=== PATIENT | female | born 1990 | race Caucasian/White ===

== ENCOUNTER → 2017-09-24 16:03 | Outpatient (CLI) | payer OTHER, SELFPAY ==
[2017-09-24 18:47] LABS: hCG Titer Quant., Serum 14422 mIU/mL (<9 non-preg)
[2017-09-24 21:31] LABS: Chlamydia Trachomatis by PCR Negative (Negative); Neisserai gonorrhoeae by PCR Negative (Negative); Probe Check PASS; Sample Adequacy Control PASS; Specimen Processing Control PASS
== END ==
PROVIDERS: Visit Provider Obstetrics & Gynecology
DX: Z12.4 Encounter for screening for malignant neoplasm of cervix (principal); Z11.3 Encounter for screening for infections with a predominantly sexual mode of transmission; Z32.01 Encounter for pregnancy test, result positive
CPT/HCPCS: 36415; 84702; 87491; 87591

== ENCOUNTER → 2017-10-22 16:36 | Outpatient (CLI) | payer OTHER, SELFPAY ==
[2017-10-22 17:45] LABS: Absolute Lymphocyte Count 1.91 X10^3/ul (0.83-4.51); Absolute Neutrophil Count 6.9 X10^3/uL (2.0-7.7); Basophil# 0.02 X10^3/uL; Basophil% 0.2 % (0-1); Eosinophil# 0.05 X10^3/uL; Eosinophils% 0.5 % (0-5); Hematocrit 40.5 % (37-47); Hemoglobin 12.9 g/dl (12.0-15.0); Lymphocyte # 1.91 X10^3/ul (4.0); Lymphocyte % 20.3 % (19-41); Mean Corp Hgb Conc 31.9 g/gl (32-36); Mean Corpuscular Hgb 26.5 pg (27.0-32.0); Mean Corpuscular Volume 83.2 fL (81-99); Mean Platelet Vol. 9.3 fl (6.2-12.0); Monocyte# 0.51 X10^3/uL; Monocyte% 5.4 % (0-10); Neutrophil # 6.87 X10^3/uL (2.7-7.7); Neutrophil % 73.3 % (47-70); POSITIVE COUNT NO; POSITIVE DIFFERENTIAL NO; POSITIVE MORPHOLOGY NO; Platelet Count 273 K/mm3 (150-450); RBC Distribution Width CV 13.7 % (11.6-14.6); RBC Distribution Width SD 41.1 fl (35.1-43.9); Red Blood Count 4.87 M/mm3 (4.2-5.4); White Blood Count 9.4 K/mm3 (4.4-11.0)
[2017-10-22 17:50] LABS: Color, Urine Straw (Yellow); Glucose, Dipstick Normal (Normal); Ketone-Dipstick Negative (Negative); Leukocyte Esterase-Dipstick Negative /ul (Negative); Nitrite-Dipstick Negative (Negative); Occult Blood-Urine 10 /ul (Negative); Protein-Dipstick Negative (Negative); Specific Gravity, Urine 1.015 (1.002-1.030); Urine Bilirubin Dipstick Negative (Negative); Urine Clarity Clear (Clear); Urine Urobilinogen Normal (Normal)
[2017-10-22 18:08] LABS: Amphetamine Urine VISTA NEGATIVE (<1000 ng/mL); Barbiturate Urine VISTA NEGATIVE (< 200 ng/mL); Benzodiazepine Urine VISTA NEGATIVE (< 200 ng/mL); Cocaine Urine VISTA NEGATIVE (< 300 ng/mL); Ecstacy Urine VISTA NEGATIVE (< 500 ng/mL); Methadone Urine VISTA NEGATIVE (< 300 ng/mL); PCP Urine VISTA NEGATIVE (< 25 ng/mL); THC Urine VISTA NEGATIVE (< 50 ng/mL); Vista UDS pH Range 5
[2017-10-22 18:11] LABS: Thyroid Stim Hormone (TSH) 1.42 uIU/mL (0.358-3.74)
[2017-10-22 18:51] LABS: HIV - WCH Non-Reactive (Nonreactive); Rubella IgG > 500.0 IU/mL
[2017-10-24 03:11] LABS: Prenatal RPR NONREACTIVE (NONREACTIVE)
[2017-10-24 09:10] LABS: HEPATITIS B SURFACE AG Negative (Negative); Hep C Antibodies 0.1 s/co ratio (0.0-0.9)
== END ==
PROVIDERS: Visit Provider Obstetrics & Gynecology
DX: Z34.81 Encounter for supervision of other normal pregnancy, first trimester (principal)
CPT/HCPCS: 36415; 80307; 81002; 84443; 85025; 86703; 86762; 86803; 87340

== ENCOUNTER → 2018-02-23 13:12 | Outpatient (CLI) | payer OTHER, SELFPAY ==
[2018-02-23 15:55] LABS: Hematocrit 36.4 % (37-47); Hemoglobin 11.7 g/dl (12.0-15.0); Mean Corp Hgb Conc 32.1 g/gl (32-36); Mean Corpuscular Hgb 26.9 pg (27.0-32.0); Mean Corpuscular Volume 83.7 fL (81-99); Mean Platelet Vol. 10.2 fl (6.2-12.0); Platelet Count 239 K/mm3 (150-450); RBC Distribution Width CV 13.9 % (11.6-14.6); RBC Distribution Width SD 41.9 fl (35.1-43.9); Red Blood Count 4.35 M/mm3 (4.2-5.4); White Blood Count 8.7 K/mm3 (4.4-11.0)
[2018-02-23 15:58] LABS: Scan Indicated on CBC? Y/N NO
[2018-02-23 16:01] LABS: Glucose Challenge Gest 1H 50g 94 mg/dL (70-140)
== END ==
PROVIDERS: Visit Provider Obstetrics & Gynecology
DX: Z34.83 Encounter for supervision of other normal pregnancy, third trimester (principal)
CPT/HCPCS: 36415; 82950; 85027

== ENCOUNTER → 2018-04-21 13:30 | Outpatient (CLI) | payer OTHER, SELFPAY ==
[2018-04-22 13:13] LABS: Group B Strep DNA By PCR Negative (Negative)
[2018-04-22 13:14] LABS: Internal Control PASS; Probe Check PASS; Specimen Processing Control PASS
== END ==
PROVIDERS: Visit Provider Obstetrics & Gynecology
DX: Z36.85 Encounter for antenatal screening for Streptococcus B (principal)
CPT/HCPCS: 87081; 87653

== ENCOUNTER 2018-05-11 05:35 | Inpatient (IN) | payer OTHER, SELFPAY ==
[2018-05-11] VITALS (21 sets, daily range): BP systolic 101–130; BP diastolic 51–75; PULSE 65–96; RESP 12–18; TEMP 36.2–37.3; O2SAT 96–100; BMI 50.0
[2018-05-11] MEDS: Lactated Ringers 1,000 ML 999 ML IV (07:10)
[2018-05-11 07:12] LABS: Hematocrit 40.1 % (37-47); Hemoglobin 12.7 g/dl (12.0-15.0); Mean Corp Hgb Conc 31.7 g/gl (32-36); Mean Corpuscular Hgb 25.8 pg (27.0-32.0); Mean Corpuscular Volume 81.5 fL (81-99); Mean Platelet Vol. 10.2 fl (6.2-12.0); Platelet Count 217 K/mm3 (150-450); RBC Distribution Width CV 14.7 % (11.6-14.6); RBC Distribution Width SD 43.3 fl (35.1-43.9); Red Blood Count 4.92 M/mm3 (4.2-5.4); White Blood Count 8.1 K/mm3 (4.4-11.0)
[2018-05-11 07:14] LABS: Scan Indicated on CBC? Y/N NO
[2018-05-11 07:20] LABS: Partial Thromboplast Time 25.9 Seconds (24.1-36.2); Prothrombin Time (Protime)PT. 12.7 SECONDS (11.7-14.9)
--- NOTE | 2018-05-11 07:23 | PCM.DCCSEC ---
Discharge Diet: No Restrictions Discharge Activity: May not drive while taking narcotic pain medications., May Shower, May Take a Tub Bath Return to work on:: 06/22/18 May resume sexual activity in: 4-6 weeks Lifting Restrictions: 20 pounds Additional Activity Instructions:: Nothing in the vagina for 4-6 weeks. You may return to work/school in 6 weeks. Change Dressing in (Days):: 4 Remove Dressing in (days):: 4 Cleanse incision/area with: Soap & Water, Keep Dressing Clean & Dry Additional Instructions: If you experience any of the following, contact your healthcare provider. Bleeding that soaks a pad every hour for 2 hours Fever 100.4 or higher Unrelieved incision or abdominal pain Swelling, redness, discharge or bleeding from your incision Problems urinating (including inability to urinate or burning while urinating). Visual changes Severe headache Flu-like symptoms Pain or redness in one of both of your breasts Pain, warmth, tenderness or swelling in your legs, especially the calf area Frequent nausea and vomiting Symptoms of depression or anxiety If you experience any of the following, call 911 or go to the nearest Emergency Room. Chest pain Problems breathing Seizure activity Partial or complete paralysis of a body part, slurred speech, weakness or drooping of the face, or a sudden inability to walk or hold your balance Allergies/Adverse Reactions: Allergies No Known Allergies Allergy (Verified 05/05/18 11:23) Medications to take at Discharge Vit Calc,Iron,Folic [ Vitamins] 1 each PO DAILY 02/22/16 Docusate Sodium [Colace] 100 mg PO BID PRN PRN #30 capsule 05/11/18 Naproxen 500 mg PO Q8H PRN PRN #30 tablet 05/11/18 Oxycodone [Oxyir] 5 - 10 mg PO Q6H PRN PRN 7 Days #20 tablet 05/11/18 The following prescriptions were given: Oxycodone [Oxyir] 5 - 10 mg PO Q6H PRN PRN 7 Days #20 tablet PRN Reason: Mod-Severe Pain (4-1010) Naproxen 500 mg PO Q8H PRN PRN #30 tablet PRN Reason: Mild-Mod Pain (1-510) Docusate Sodium [Colace] 100 mg PO BID PRN PRN #30 capsule PRN Reason: Constipation Follow-Up: Call to make an appointment with your doctor for an incision check in 1-2 weeks. You will also need a 6 week post- follow up appointment. Test results from this visit will be discussed in further detail at your follow-up appointment, if applicable. Please Follow Up With: Filippo Lentz MD - [phone] When: Call to make an appointment for an incision check in 2 weeks. Primary Care Physician: Gayle Beard MD [Primary Care Provider] - Proposed Discharge Date: 05/14/18
[2018-05-11] MEDS: Sodium Citrate/Citric Acid 30 ML UDC PO (07:28)
--- NOTE | 2018-05-11 07:28 | DCINST_ITS ---
Discharge Diet: No Restrictions Discharge Activity: May not drive while taking narcotic pain medications., May Shower, May Take a Tub Bath Return to work on:: 06/22/18 May resume sexual activity in: 4-6 weeks Lifting Restrictions: 20 pounds Additional Activity Instructions:: Nothing in the vagina for 4-6 weeks. You may return to work/school in 6 weeks. Change Dressing in (Days):: 4 Remove Dressing in (days):: 4 Cleanse incision/area with: Soap & Water, Keep Dressing Clean & Dry Additional Instructions: If you experience any of the following, contact your healthcare provider. * Bleeding that soaks a pad every hour for 2 hours * Fever 100.4 or higher * Unrelieved incision or abdominal pain * Swelling, redness, discharge or bleeding from your incision * Problems urinating (including inability to urinate or burning while urinating). * Visual changes * Severe headache * Flu-like symptoms * Pain or redness in one of both of your breasts * Pain, warmth, tenderness or swelling in your legs, especially the calf area * Frequent nausea and vomiting * Symptoms of depression or anxiety If you experience any of the following, call 911 or go to the nearest Emergency Room. * Chest pain * Problems breathing * Seizure activity * Partial or complete paralysis of a body part, slurred speech, weakness or drooping of the face, or a sudden inability to walk or hold your balance Allergies/Adverse Reactions: Allergies No Known Allergies Allergy (Verified 05/05/18 11:23) Medications to take at Discharge Vit Calc,Iron,Folic [ Vitamins] 1 each PO DAILY 02/22/16 Docusate Sodium [Colace] 100 mg PO BID PRN PRN #30 capsule 05/11/18 Naproxen 500 mg PO Q8H PRN PRN #30 tablet 05/11/18 Oxycodone [Oxyir] 5 - 10 mg PO Q6H PRN PRN 7 Days #20 tablet 05/11/18 The following prescriptions were given: Oxycodone [Oxyir] 5 - 10 mg PO Q6H PRN PRN 7 Days #20 tablet PRN Reason: Mod-Severe Pain (4-10) Naproxen 500 mg PO Q8H PRN PRN #30 tablet PRN Reason: Mild-Mod Pain (1-5/10) Docusate Sodium [Colace] 100 mg PO BID PRN PRN #30 capsule PRN Reason: Constipation Follow-Up: Call to make an appointment with your doctor for an incision check in 1-2 weeks. You will also need a 6 week post- follow up appointment. Test results from this visit will be discussed in further detail at your follow- up appointment, if applicable. Please Follow Up With: Filippo Lentz MD - [phone] When: Call to make an appointment for an incision check in 2 weeks. Primary Care Physician: Gayle Beard MD [Primary Care Provider] - Proposed Discharge Date: 05/14/18
[2018-05-11] MEDS: Oxytocin 30 units/NS 500 ml 30 UNITS/500 ML IV.SOLN 167 UNITS IV (07:58)
[2018-05-11] MEDS: Methylergonovine 0.2 MG/ML Ampul IM (08:02)
[2018-05-11] MEDS: Lactated Ringers 1,000 ML 100 ML IV ×2 (10:18→20:25)
[2018-05-11] MEDS: Ketorolac 30 MG/ML Syringe IV ×2 (15:15→21:12)
[2018-05-11] MEDS: Nalbuphine 10 MG/ML Ampul 5 MG IV (15:16)
--- NOTE | 2018-05-11 18:23 | PCM.OP.BLANK ---
Operative Report Date of Procedure: 05/11/18 PROCEDURE: Repeat C section. Preoperative diagnosis: 39 wk EGA Prior C section, planned repeat C section Postop diagnosis: 39 wk EGA Prior C section, planned repeat C section Anesthesia: Spinal, Ridge Tadeo CRNA Surgeon: Evelyn Lemos MD Publishing Systems Analyst: CHETAN Aguero EBL 800 cc Complications: none Drains: Andrews draining clear yellow appearing urine Fluids: replacement LR Findings: At amniotomy, clear fluid was noted. Day viable female in vertex presentation. Apgars 9/9, Baby weight: 7# 1 oz There were normal appearing uterus, fallopian tubes and ovaries bilaterally. There were minimal filmy adhesions between the bladder and lower uterine segment. PATH: None Narrative account: After the risks, benefits and alternatives of the procedure were reviewed with the patient, informed consent was obtained. The patient was taken to the Operating room with an IV running, and placed in a seated position on the operating table for placement of the spinal. Once the spinal had been administered, she was briefly frog-legged for Andrews catheter placement, and then repositioned to dorsal supine position with leftward displacement of the uterus, and prepped and draped in the usual sterile fashion. Once the spinal was deemed adequate, a Pfannenstiel skin incision was created using the knife (through the prior skin incision scar). The incision was carried down to the rectus fascia using the knife. The fascia was nicked in the midline. The fascial incision was extended bilaterally using curved Rapp scissors. The superior aspect of the fascial incision was grasped with Shawn clamps and tented up and the underlying rectus abdominal muscles were dissected free. In a similar manner, the inferior aspect of the facial incision was grasped with Shawn clamps tented up and the underlying rectus abdominal muscles were dissected free. The rectus abdominis muscles were in the midline and the peritoneum was identified and entered by blunt dissection high in the incision. The peritoneum was stretched laterally and a bladder blade was inserted. A bladder flap was created along the lower uterine segment with Metzenbaum scissors . The uterine incision was then created using Metzenbaum scissors. The operators fingertips were used to extend the uterine incision by blunt dissection in a caudad- cephalad orientation . Clear fluid was noted at amniotomy. The vertex was then delivered atraumatically through the incision. The OP and nares were bulb suctioned on the abdomen. The shoulders delivered easily . The cord clamped x two and cut. And the infant was handed off to the nurse awaiting delivery after briefly showing her to her parents. The baby had a spontaneous, vigorous cry. The placenta was then delivered. The uterus was exteriorized and cleared of clots and debris . Ther was a mild degree of uterine atony. Pitocin was given, Methergine was given 0.2 mg IM in L thigh times one, and bimanual uterine massage was used. The uterine incision was repaired with 1 Vicryl in a running locked fashion. A second imbricating layer was then placed, using 1 Monocryl in running nonlocked fashion. There was a small serosal bleed noted at the L uterine angle. This was Bovie cauterized. Excellent hemostasis was then noted. At this point the uterus was returned to the abdominal cavity. The gutters were cleared of clots and debris and the incision at the uterus was inspected. Alvaro was applied along the entire incision for continued hemostasis. The peritoneal edges were reapproximated in the midline with a continuous suture of 1 Vicryl. The rectus abdominis muscles were then reapproximated in the midline. Alvaro was applied to this layer. Excellent hemostasis was noted at the subfascial space The fascia was closed in a running nonlocked fashion with a Stratofix. The Subcutaneous fatty tissue was Bovie cauterized as needed for hemostasis. Alvaro was liberally dusted at this layer to prevent seroma formation. This layer was then reapproximated in a single layer closure of running 3-0 Vicryl to eliminate space. The skin edges were closed in a Subcuticular stitch of 4-0 Monocryl. The incision was cleansed. Cavilon, Steristrips, and Mepilex dressing were applied to the skin . The patient was then transferred to the recovery room bed in stable condition after tolerating the procedure well. Sponge, lap, needle and instrument counts correct times two. Medications given preop and intraoperatively included: Ancef IV given concrete vibrator operator to the operating room. The patient also received Pitocin given IV after cord clamp, Methergine 0.2 mg IM in L thigh, and Toradol 30 mg IV times one. For a complete listing of medications given preop and intraoperatively, please see the anesthesia record.
--- NOTE | 2018-05-11 19:25 | NURSING ---
late entry- 1845 dangled and stood at bedside. tolerated well. ambulated to bathroom, pericare completed and assisted to couch. tolertaed well. at bedside.
[2018-05-12 00:25] VITALS: BP 100/48; PULSE 88; RESP 16; TEMP 36.9; O2SAT 98
[2018-05-12] MEDS: Ketorolac 30 MG/ML Syringe IV ×4 (03:18→20:51)
[2018-05-12] MEDS: Senna/Docusate Sodium 1 Tablet PO ×2 (03:33→22:06)
[2018-05-12] MEDS: Ondansetron 4 MG/2 ML Vial IV (03:33)
[2018-05-12 03:48] VITALS: BP 126/68; PULSE 93; RESP 17; TEMP 37.4; O2SAT 98
[2018-05-12 05:50] VITALS: PULSE 88; RESP 17; O2SAT 97
[2018-05-12 06:05] LABS: Hematocrit 29.1 % (37-47); Hemoglobin 9.2 g/dl (12.0-15.0); Mean Corp Hgb Conc 31.6 g/gl (32-36); Mean Corpuscular Hgb 25.8 pg (27.0-32.0); Mean Corpuscular Volume 81.7 fL (81-99); Mean Platelet Vol. 9.5 fl (6.2-12.0); Platelet Count 143 K/mm3 (150-450); RBC Distribution Width CV 14.6 % (11.6-14.6); RBC Distribution Width SD 42.3 fl (35.1-43.9); Red Blood Count 3.56 M/mm3 (4.2-5.4); White Blood Count 8.2 K/mm3 (4.4-11.0)
[2018-05-12 06:07] LABS: Scan Indicated on CBC? Y/N NO
--- NOTE | 2018-05-12 06:59 | NURSING ---
Pt. called this RN to room for IV alarm going off. Upon entering room, pt. was experiencing moderate to severe anxiety about infant crying, impaired ability to move, and lack of sleep. Pt. kept calling out for infant to stop crying and having c/o pain in her shoulder. Explained that it is referred gas pain from and that getting up and moving will help. women's apparel salesperson called to room to assist pt. up to couch and to help calm pt. down from anxiety. Pt. resting comfortably on couch, bolod discontinued, and nursing .
[2018-05-12 08:00] VITALS: BP 112/51; PULSE 78; RESP 16; TEMP 36.6; O2SAT 99
--- NOTE | 2018-05-12 08:23 | PCM.PN.OB ---
Subjective: POD#1 Repeat C/S Doing well. Tearful. states poor sleep. Declines med to help with sleeping. Nursing. Has not started her Wellbutrin yet. - Physical Exam General: Alert, Oriented x3, Cooperative, No apparent distress HEENT: Atraumatic Neck: Supple Abdomen: Soft - Fundus firm NT at umbilicus Skin: Incision - CDI. Mepilex in place. Neurological: Cranial nerves II-XII grossly intact Psych/Mental Status: Normal Affect - tearful Vital Signs Temp Pulse Resp BP Pulse Ox 99.3 F H 88 17 126/68 H 97 05/12/18 03:48 05/12/18 05:50 05/12/18 05:50 05/12/18 03:48 05/12/18 05:50 Oxygen Delivery Method Room Air Weight: 136.35 kg Body Mass Index (BMI) 50.0 Intake and Output for Last 24 Hours 05/10/18 05/11/18 05/12/18 23:59 23:59 23:59 Intake Total 1338 / 1338 1584.3 / 1584.3 Output Total 700 / 700 1000 / 1000 Balance 638 / 638 584.3 / 584.3 Laboratory Tests Past 24 Hrs 05/11/18 05/12/18 07:00 05:50 WBC 8.2 RBC 3.56 L Hgb 9.2 L Hct 29.1 L MCV 81.7 MCH 25.8 L MCHC 31.6 L RDW 14.6 RDW Differential 42.3 Plt Count 143 L MPV 9.5 Blood Type A POSITIVE Antibody Screen NEGATIVE Medical Necessity - Tobacco Use Smoking Status: Former smoker Assessment/Plan POD#1 Repeat C/S Stable . Inc diet and activity as tolerated. IV to S/L today for continued Toradol. Andrews removed and voiding trial in progress. ANXIETY. starting Wellbutrin today. social services technician consult. Encouraged Ambien or benadryl to help with sleep. Continue care
--- NOTE | 2018-05-12 08:27 | PN.OBGYN_ITS ---
Subjective: POD#1 Repeat C/S Doing well. Tearful. states poor sleep. Declines med to help with sleeping. Nursing. Has not started her Wellbutrin yet. - Physical Exam General: Alert, Oriented x3, Cooperative, No apparent distress HEENT: Atraumatic Neck: Supple Abdomen: Soft - Fundus firm NT at umbilicus Skin: Incision - CDI. Mepilex in place. Neurological: Cranial nerves II-XII grossly intact Psych/Mental Status: Normal Affect - tearful Vital Signs Temp Pulse Resp BP Pulse Ox 99.3 F H 88 17 126/68 H 97 05/12/18 03:48 05/12/18 05:50 05/12/18 05:50 05/12/18 03:48 05/12/18 05:50 Oxygen Delivery Method Room Air Weight: 136.35 kg Body Mass Index (BMI) 50.0 Intake and Output for Last 24 Hours 05/10/18 05/11/18 05/12/18 23:59 23:59 23:59 Intake Total 1338 / 1338 1584.3 / 1584.3 Output Total 700 / 700 1000 / 1000 Balance 638 / 638 584.3 / 584.3 Laboratory Tests Past 24 Hrs 05/11/18 05/12/18 07:00 05:50 WBC 8.2 RBC 3.56 L Hgb 9.2 L Hct 29.1 L MCV 81.7 MCH 25.8 L MCHC 31.6 L RDW 14.6 RDW Differential 42.3 Plt Count 143 L MPV 9.5 Blood Type A POSITIVE Antibody Screen NEGATIVE Medical Necessity - Tobacco Use Smoking Status: Former smoker Assessment/Plan POD#1 Repeat C/S Stable . Inc diet and activity as tolerated. IV to S/L today for continued Toradol. Andrews removed and voiding trial in progress. ANXIETY. starting Wellbutrin today. retail services professional consult. Encouraged Ambien or benadryl to help with sleep. Continue care
[2018-05-12] MEDS: 0.9% Saline Lock 10 ML Syringe IV ×4 (09:02→20:51)
[2018-05-12] MEDS: buPROPion (SR) 150 MG Tablet.SA PO (10:19)
[2018-05-12] MEDS: Prenatal Vits Tablet 1 TABLET PO (10:19)
[2018-05-12 13:57] VITALS: BP 122/68; PULSE 97; RESP 16; TEMP 37.4
--- NOTE | 2018-05-12 15:36 | CASEMGMT ---
Social Work Labor and Delivery Unit Consult received today for maternal anxiety. Chart reviewed. This fiction and nonfiction prose writer familiar with patient/mother of baby (MOB) from previous delivery at [facility], consult at that time also for history of anxiety. Spoke with primary RN today about how MOB is doing today. Plan: Per collaboration with RN, and in light of MOB being post op day number 1, will plan to see MOB tomorrow 05-13-2018 for assessment and consult. -SHAVONNE Kang, STRATEGIC DEBRIEFING OFFICER
[2018-05-12] MEDS: oxyCODONE 5 MG Tablet PO ×2 (17:48→22:06)
[2018-05-12 20:10] VITALS: BP 122/76; PULSE 93; RESP 16; TEMP 37.7; O2SAT 95
[2018-05-13] MEDS: oxyCODONE 5 MG Tablet PO ×5 (02:12→22:31)
[2018-05-13 02:20] VITALS: BP 134/58; PULSE 94; RESP 16; TEMP 36.9; O2SAT 96
[2018-05-13] MEDS: 0.9% Saline Lock 10 ML Syringe IV ×3 (03:03→09:58)
[2018-05-13] MEDS: Ketorolac 30 MG/ML Syringe IV ×2 (03:03→09:49)
--- NOTE | 2018-05-13 08:08 | PN.OBGYN_ITS ---
Subjective: POD#2 Repeat C/S. In much better spirits today. Nursing OK. Rested last night. No longer as tired. - Physical Exam General: Alert, Oriented x3, Cooperative, No apparent distress HEENT: Atraumatic Neck: Supple Abdomen: Soft - Fundus Firm NT at 2 cm inferior to umbilicus Skin: Incision - Mepliex CDI Intact Psych/Mental Status: Normal Affect Vital Signs Temp Pulse Resp BP Pulse Ox 98.4 F 94 16 134/58 H 96 05/13/18 02:20 05/13/18 02:20 05/13/18 02:20 05/13/18 02:20 05/13/18 02:20 Oxygen Delivery Method Room Air Weight: 136.35 kg Body Mass Index (BMI) 50.0 Intake and Output for Last 24 Hours 05/11/05/12/18 05/13/18 23:59 23:59 23:59 Intake Total 1338 / 1338 1584.3 / 1584.3 Output Total 700 / 700 1700 / 1700 Balance 638 / 638 -115.7 / -115.7 Medical Necessity - Tobacco Use Smoking Status: Former smoker Assessment/Plan POD#2 Repeat C/S Stable . Would like to stay. Concerned about pain control and reviewed meds available. ANXIETY. Started Wellbutrin disability services coordinator consult. Continue care
[2018-05-13 09:39] VITALS: BP 119/78; PULSE 86; RESP 16; TEMP 37.2
[2018-05-13] MEDS: buPROPion (SR) 150 MG Tablet.SA PO (09:48)
[2018-05-13] MEDS: Prenatal Vits Tablet 1 TABLET PO (12:07)
[2018-05-13 14:00] VITALS: BP 141/69; PULSE 103; RESP 18; TEMP 36.8
[2018-05-13] MEDS: Naproxen 250 MG Tablet PO ×2 (15:31→23:29)
[2018-05-13 20:00] VITALS: BP 131/75; PULSE 96; RESP 20; TEMP 37.2; O2SAT 97
[2018-05-13] MEDS: Senna/Docusate Sodium 1 Tablet PO (22:31)
[2018-05-14 03:00] VITALS: BP 136/61; PULSE 74; RESP 20; TEMP 36.7; O2SAT 99
[2018-05-14] MEDS: Acetaminophen 500 MG Tablet 1000 MG PO ×2 (03:03→13:33)
[2018-05-14] MEDS: oxyCODONE 5 MG Tablet PO (03:03)
--- NOTE | 2018-05-14 08:06 | PN.OBGYN_ITS ---
Subjective: POD#3 Repeat C/S Doing well. Ready to go home today. On med for anxiety. well services operator consult ordered, in place. - Physical Exam General: Alert, Oriented x3, Cooperative, No apparent distress HEENT: Atraumatic Neck: Supple Abdomen: Soft - Fundus firm minimally tender , inferior to umbilicus. Skin: Incision - CDI. Mepilex dressing in place (remove in 4d after surgery) Neurological: Cranial nerves II-XII grossly intact Psych/Mental Status: Normal Affect Vital Signs Temp Pulse Resp BP Pulse Ox 98.0 F 74 20 H 136/61 H 99 10/06/21 03:00 05/14/18 03:00 05/14/18 03:00 05/14/18 03:00 05/14/18 03:00 Oxygen Delivery Method Room Air Weight: 136.35 kg Body Mass Index (BMI) 50.0 Intake and Output for Last 24 Hours 10//18 1018 05/14/18 23:59 23:59 23:59 Intake Total 1584.3 / 1584.3 Output Total 1700 / 1700 Balance -115.7 / -115.7 Medical Necessity - Tobacco Use Smoking Status: Former smoker Assessment/Plan POD#2 Repeat C/S Stable . Dischg home today. RTO in 1-2 wk for postop incision check. 6 wk for pp check.
--- NOTE | 2018-05-14 08:06 | PCM.DC.SUM ---
Hospital Course and Treatment Operations: - - Repeat C/S Summary of Care Provided: The patient is a 28 year old Female presents for repeat C/S. Declines BTO. Admitted for repeat C/S on 05/11/18. Procedure uncomplicated with findings as listed: At amniotomy, clear fluid was noted. Day viable female in vertex presentation. Apgars 9/9, Baby weight: 7# 1 oz There were normal appearing uterus, fallopian tubes and ovaries bilaterally. There were minimal filmy adhesions between the bladder and lower uterine segment. Postoperative course uneventful. Initially anxious and poor sleep. Started on Wellbutrin 150 mg po daily. senior manager creative services consult obtained re her extreme anxiety. Improvement noted with sleep, s/p procedure, and initiation of medication. Home on POD#3 per her request. RTO in 2 wk and 6 wk for f/u postop and exams. [] - Physical Exam Vital Signs Temp Pulse Resp BP Pulse Ox 98.0 F 74 20 H 136/61 H 99 05/14/18 03:00 05/14/18 03:00 05/14/18 03:00 05/14/18 03:00 05/14/18 03:00 Oxygen Delivery Method Room Air Weight: 136.35 kg Body Mass Index (BMI) 50.0 Intake and Output for Last 24 Hours 05/12/18 05/13/18 05/14/18 23:59 23:59 23:59 Intake Total 1584.3 / 1584.3 Output Total 1700 / 1700 Balance -115.7 / -115.7 Discharge Diet: No Restrictions Discharge Activity: May not drive while taking narcotic pain medications., May Shower, May Take a Tub Bath Return to work on:: 06/22/18 May resume sexual activity in: 4-6 weeks Additional Activity Instructions:: Nothing in the vagina for 4-6 weeks. You may return to work/school in 6 weeks. Change Dressing in (Days):: 4 Remove Dressing in (days):: 4 Cleanse incision/area with: Soap & Water, Keep Dressing Clean & Dry Home Medications: Medications to take at Discharge Vit Calc,Iron,Folic [ Vitamins] 1 each PO DAILY 02/22/16 Docusate Sodium [Colace] 100 mg PO BID PRN PRN #30 capsule 05/11/18 Naproxen 500 mg PO Q8H PRN PRN #30 tablet 05/11/18 Oxycodone [Oxyir] 5 - 10 mg PO Q6H PRN PRN 7 Days #20 tablet 05/11/18 buPROPion SR [Wellbutrin SR (150mg tablets)] 150 mg PO DAILY #30 tablet.sa 05/11/18 Following Prescrptions Were Given to Patient: Oxycodone [Oxyir] 5 - 10 mg PO Q6H PRN PRN 7 Days #20 tablet PRN Reason: Mod-Severe Pain (-05/13) Naproxen 500 mg PO Q8H PRN PRN #30 tablet PRN Reason: Mild-Mod Pain (1-12/11) buPROPion SR [Wellbutrin SR (150mg tablets)] 150 mg PO DAILY #30 tablet.sa Docusate Sodium [Colace] 100 mg PO BID PRN PRN #30 capsule PRN Reason: Constipation Primary Care Physician: Gayle Beard MD [Primary Care Provider] - Please Follow Up With: Filippo Lentz MD - [phone] When: Call to make an appointment for an incision check in 2 weeks. Medical Necessity - Tobacco Use Smoking Status: Former smoker Meaningful Use Info Meaningful Use Diagnoses (Choose all that apply): None applicable
[2018-05-14 08:08] VITALS: BP 121/74; PULSE 95; RESP 16; TEMP 36.4
--- NOTE | 2018-05-14 08:09 | DS.PCM_ITS ---
Hospital Course and Treatment Operations: - - Repeat C/S Summary of Care Provided: The patient is a 28 year old Female presents for repeat C/S. Declines BTO. Admitted for repeat C/S on 05/11/18. Procedure uncomplicated with findings as listed: At amniotomy, clear fluid was noted. Day viable female in vertex presentation. Apgars 9/9, Baby weight: 7# 1 oz There were normal appearing uterus, fallopian tubes and ovaries bilaterally. There were minimal filmy adhesions between the bladder and lower uterine segment. Postoperative course uneventful. Initially anxious and poor sleep. Started on Wellbutrin 150 mg po daily. enrollment services dean consult obtained re her extreme anxiety. Improvement noted with sleep, s/p procedure, and initiation of medication. Home on POD#3 per her request. RTO in 2 wk and 6 wk for f/u postop and exams. [] - Physical Exam Vital Signs Temp Pulse Resp BP Pulse Ox 98.0 F 74 20 H 136/61 H 99 05/14/18 03:00 05/14/18 03:00 05/14/18 03:00 05/14/18 03:00 05/14/18 03:00 Oxygen Delivery Method Room Air Weight: 136.35 kg Body Mass Index (BMI) 50.0 Intake and Output for Last 24 Hours 05/12/18 05/13/18 05/14/18 23:59 23:59 23:59 Intake Total 1584.3 / 1584.3 Output Total 1700 / 1700 Balance -115.7 / -115.7 Discharge Diet: No Restrictions Discharge Activity: May not drive while taking narcotic pain medications., May Shower, May Take a Tub Bath Return to work on:: 06/22/18 May resume sexual activity in: 4-6 weeks Additional Activity Instructions:: Nothing in the vagina for 4-6 weeks. You may return to work/school in 6 weeks. Change Dressing in (Days):: 4 Remove Dressing in (days):: 4 Cleanse incision/area with: Soap & Water, Keep Dressing Clean & Dry Home Medications: Medications to take at Discharge Vit Calc,Iron,Folic [ Vitamins] 1 each PO DAILY 02/22/16 Docusate Sodium [Colace] 100 mg PO BID PRN PRN #30 capsule 05/11/18 Naproxen 500 mg PO Q8H PRN PRN #30 tablet 05/11/18 Oxycodone [Oxyir] 5 - 10 mg PO Q6H PRN PRN 7 Days #20 tablet 05/11/18 buPROPion SR [Wellbutrin SR (150mg tablets)] 150 mg PO DAILY #30 tablet.sa 05/11/18 Following Prescrptions Were Given to Patient: Oxycodone [Oxyir] 5 - 10 mg PO Q6H PRN PRN 7 Days #20 tablet PRN Reason: Mod-Severe Pain (-05/13) Naproxen 500 mg PO Q8H PRN PRN #30 tablet PRN Reason: Mild-Mod Pain (1-12/11) buPROPion SR [Wellbutrin SR (150mg tablets)] 150 mg PO DAILY #30 tablet.sa Docusate Sodium [Colace] 100 mg PO BID PRN PRN #30 capsule PRN Reason: Constipation Primary Care Physician: Gayle Beard MD [Primary Care Provider] - Please Follow Up With: Filippo Lentz MD - [phone] When: Call to make an appointment for an incision check in 2 weeks. Medical Necessity - Tobacco Use Smoking Status: Former smoker Meaningful Use Info Meaningful Use Diagnoses (Choose all that apply): None applicable
[2018-05-14] MEDS: Naproxen 250 MG Tablet PO (08:40)
[2018-05-14] MEDS: Senna/Docusate Sodium 1 Tablet PO (08:43)
--- NOTE | 2018-05-14 10:30 | CASEMGMT ---
Social Work Assessment Labor and Delivery Unit Date of Referral: 05.12.2018 Time of Referral: 814 Referred By: Dr. Lemos Date of Intervention: 05.14.18 Time of Intervention: 1030 Reason for Referral: maternal anxiety History obtained from: Medical record and mother of baby (MOB) Rox Nuñez Household composition: MOB, father of baby (FOB), and their oldest child. will go to this home at discharge. Patient's parent/guardian status: MOB and FOB Timur Nuñez are for 3 years now. MOB denies any safety concerns or history of abuse in this marriage. MOB reports home situation is safe and adequate. Minor children include: [place] Randa (born 10..18) and Yohana (born 7..16). Medical History: MOB is G3, P1 to 2 after delivering Randa. MOB with one first trimester loss between Yohana and Randa. MOB with care this starting at 10 weeks. Baby born weighing 7 pounds 1 ounce, Apgars 9 and 9 at 1 and 5 minutes of life. Educational Status: No issues with reading, writing, or learning comprehension. Financial Status: MOB is currently staying at home. FOB works as a respiratory therapist. Infant Supplies: MOB reports to have needed supplies for baby including safe sleep space and car seat. MOB plans to breast feed . Childcare/Caregiver(s): MOB Transportation: Both MOB and FOB drive, no issues reported Programs/Agencies Involved: No agency involvement, no legal history and no reports of any children services involvement. MOB denies need for referral to any agencies locally such as [facility]. Behavioral Health Issues: Mental Health History: MOB with history of depression and anxiety, with anxiety being more prominent for MOB. MOB reports did have some mood issues after delivery of Yohana which lasted about 2-3 weeks. MOB reports was having dreams which caused anxiety. No thoughts, plans, intent to harm self or others at that time and denies such currently. MOB reports worried a lot about SIDS at that time. MOB reports was on Wellbutrin but went off during . MOB is restarting this and reports to feel this medication does work okay for MOB. Substance Use History: MOB denies any history of substance abuse or dependency. No tobacco use either. Drug Screens: Maternal drug screen on 3.21.18 negative for drugs of abuse. Family/Social Stressors: MOB did have a loss between of daughters. MOB reports to feel that coped well after the loss, that at the time parents looked at the situation as something that was not meant to be at the time. MOB reports does have some anxiety but is starting on medication again. MOB discussed worries about too many family members coming to visit and wanting to respectfully keep boundaries up that are good for MOB and FOB?s family unit. Support Systems: MOB repots to have family that are helpful and around if MOB needs. MOB reports however that FOB is primary support person and is helpful to MOB and the children. FOB will have a couple of weeks off work to assist MOB with transition home from hospital with baby and care of two children. Depression/Shaken Baby/Safe Sleeping: MOB is aware of safe sleeping, shaken baby prevention, and mood and anxiety issues. Educated MOB to signs/symptoms and risk factors. Supportive encouragement and reflection provided to MOB, discussed assertive communication and boundary setting. ASSESSMENT: MOB pleasant, talkative, good eye contact, mood slightly anxious, affect full. MOB smiled and attentive to the baby. MOB reports it was helpful to be able to have someone to talk to about life situations. MOB also reports to feel that as each day has gone by things have improved regarding how MOB has been feeling emotionally. Talked with MOB about possible counseling as another outlet for MOB, for ongoing support in managing life stressors and emotions. MOB reports will consider this and accepting of resources offered today. MOB reports to feel to have adequate support and resources for baby. MOB is restarting medication and has accepted resources for support. Reinforces need to seek help and support should symptoms worsen. PLAN: MOB and baby to home. MOB has been given depression packet, local [id number] for support and online resources to try if needed. No other services requested or indicated. -ENMA Kang, CREATIVE INTERN
[2018-05-14] MEDS: buPROPion (SR) 150 MG Tablet.SA PO (10:55)
[2018-05-14] MEDS: Prenatal Vits Tablet 1 TABLET PO (12:48)
[2018-05-14 13:05] VITALS: BP 143/83; PULSE 103; RESP 16; TEMP 36.8
[2018-05-14 15:15] VITALS: BP 136/69; PULSE 88; O2SAT 100
--- NOTE | 2018-05-18 12:27 | NURSING ---
Follow up phone call complete, patient denies concerns or questions, but did request and schedule an appointment with an IBCLC with questions about her baby's latch. Was very satisfied with her care
== END 2018-05-14 15:25 | disposition home or self-care (01) | DRG 788 ==
PROVIDERS: Obstetrics & Gynecology; Admitting Provider Obstetrics & Gynecology; Family Provider Family Medicine; PCP Family Medicine; Referring Provider Obstetrics & Gynecology; Visit Provider Obstetrics & Gynecology
PROC: 10D00Z1 Extraction of Products of Conception, Low, Open Approach (ICD-10-PCS; CPT 59514; principal; 2018-05-11 07:15)
DX: O34.211 Maternal care for low transverse scar from previous cesarean delivery (principal); O99.62 Diseases of the digestive system complicating childbirth; K21.9 Gastro-esophageal reflux disease without esophagitis; O99.344 Other mental disorders complicating childbirth; F32.9 Major depressive disorder, single episode, unspecified; F41.9 Anxiety disorder, unspecified; Z87.891 Personal history of nicotine dependence; Z3A.39 39 weeks gestation of pregnancy; Z37.0 Single live birth
CPT/HCPCS: 85027; 85610; 85730; 86850; 86900; 99218; J7120; A4216; G0378; J2405

== ENCOUNTER 2018-05-20 14:07 | Outpatient (CLI) | payer OTHER, SELFPAY | END 2018-05-20 15:15 | disposition home or self-care (01) | LOC: WPOUT 14:12 → WP 14:13 | PROVIDERS: Family Provider Family Medicine; PCP Family Medicine; Referring Provider Obstetrics & Gynecology; Visit Provider Obstetrics & Gynecology | DX: Z39.1 Encounter for care and examination of lactating mother (principal) ==

== ENCOUNTER → 2018-12-29 11:40 | Outpatient (CLI) | payer OTHER, SELFPAY ==
[2018-05-11 07:27] VITALS: BMI 50.0
[2018-12-29 14:09] LABS: Absolute Lymphocyte Count 1.65 X10^3/ul (0.83-4.51); Absolute Neutrophil Count 3.8 X10^3/uL (2.0-7.7); Basophil# 0.02 X10^3/uL; Basophil% 0.3 % (0-1); Eosinophils% 1.7 % (0-5); Hematocrit 41.9 % (37-47); Hemoglobin 13.2 g/dl (12.0-15.0); Lymphocyte # 1.65 X10^3/ul (4.0); Lymphocyte % 27.5 % (19-41); Mean Corp Hgb Conc 31.5 g/gl (32-36); Mean Corpuscular Hgb 24.3 pg (27.0-32.0); Mean Corpuscular Volume 77.2 fL (81-99); Mean Platelet Vol. 9.6 fl (6.2-12.0); Monocyte# 0.39 X10^3/uL; Monocyte% 6.5 % (0-10); Neutrophil # 3.82 X10^3/uL (2.7-7.7); Neutrophil % 63.8 % (47-70); Platelet Count 264 K/mm3 (150-450); RBC Distribution Width SD 44.9 fl (35.1-43.9); Red Blood Count 5.43 M/mm3 (4.2-5.4)
[2018-12-29 14:14] LABS: POSITIVE COUNT NO; POSITIVE DIFFERENTIAL NO; POSITIVE MORPHOLOGY NO
[2018-12-29 14:32] LABS: ALB/GLOB Ratio 0.9 RATIO (0.9-2.4); AST(SGOT) 16 U/L (15-37); Alanine Aminotransfer ALT/SGPT 41 U/L (13-56); Albumin, Serum 3.6 g/dL (3.2-5.0); Alkaline Phosphatase 65 U/L (45-117); Anion Gap 9 (5-15); BUN 9 mg/dL (7-18); BUN/Creat Ratio 10.3 RATIO (10-20); Calcium,Total 8.9 mg/dL (8.5-10.1); Chloride 110 mmol/L (98-107); Cholesterol 149 mg/dL (200); Creatinine, Serum 0.88 mg/dL (0.55-1.02); EST Glomerular Filtration Rate 80 mL/min (>60); Est Glom Filt Rate - Afr Amer 97 mL/min (>60); Globulin 4.2 g/dL (2.2-4.2); Glucose 74 mg/dL (74-106); High Density Lipoprotein 48 mg/dL; Potassium 3.7 mmol/L (3.5-5.1); Protein, Total 7.8 g/dL (6.4-8.2); Sodium Level 143 mmol/L (136-145); Thyroid Stim Hormone (TSH) 1.48 uIU/mL (0.358-3.74); Triglycerides 76 mg/dL; Very Low Density Lipoprotein 15 mg/dL (5-40)
== END ==
PROVIDERS: Family Provider Family Medicine; PCP Family Medicine; Referring Provider Family Medicine; Visit Provider Family Medicine
DX: R10.32 Left lower quadrant pain (principal); R19.7 Diarrhea, unspecified; R11.0 Nausea
CPT/HCPCS: 36415; 80053; 80061; 83630; 84443; 85025; 87177; 87209; 87493; 87506

== ENCOUNTER → 2019-01-12 07:39 | Outpatient (CLI) | payer OTHER, SELFPAY ==
--- NOTE | 2019-01-12 07:41 | US_ITS ---
STUDY: ABDOMINAL ULTRASOUND - RIGHT UPPER QUADRANT REASON FOR VISIT: Female, 28 years old. Right upper quadrant pain. TECHNIQUE: Ultrasound evaluation of the right upper quadrant was performed with real-time and static cr-scale imaging. TECHNICAL QUALITY: Adequate. COMPARISON: None. FINDINGS: Liver: The liver measures 16.0 cm. There is increased echogenicity consistent with fatty infiltration. The bile ducts are within normal limits. There is hepatic color flow. The direction of portal flow is hepatopetal. There is no demonstrated mass lesion. Gallbladder: Normal distended gallbladder. The gallbladder wall measures 3.1 mm. There is a negative sonographic Grissom's sign. There is no pericholecystic fluid. There are no gallstones. Common Bile Duct (C.B.D.): The common bile duct measures 4.0 mm. Pancreas: Normal size of the head, body and tail of the pancreas. There is normal echogenicity of the pancreas. There is no demonstrated pancreatic mass or cyst. Right Kidney: Normal size of the right kidney. The right kidney measures 11.0 cm x 5.7 cm x 3.9 cm. Normal renal cortex. The right cortex measures cm. There is no demonstrated renal mass or cyst. There is no right hydronephrosis. US/Abdomen Limited IMPRESSION: Normal right upper quadrant ultrasound examination. Electronically Signed: Bunny Manuel, at 13:24 EDT , Service support ,
== END ==
PROVIDERS: Family Provider Family Medicine; PCP Family Medicine; Referring Provider Family Medicine; Visit Provider Family Medicine
DX: R10.11 Right upper quadrant pain (principal)
CPT/HCPCS: 76705

== ENCOUNTER → 2019-01-18 11:04 | Outpatient (CLI) | payer OTHER, SELFPAY ==
--- NOTE | 2019-01-18 11:08 | NM_ITS ---
CLINICAL: 28-year-old female with reported history of right upper quadrant abdominal pain. RADIONUCLIDE HEPATOBILIARY SCINTIGRAPHY COMPARISON: Abdominal ultrasound report 01/12/2019 FINDINGS: Following the intravenous administration of 5.4 mCi of 99m Tc Mebrofenin, hepatobiliary images reveal:. 1. Relatively prompt and homogeneous radiopharmaceutical concentration is noted by a normal sized liver. No parenchymal defects are identified. 2. Gallbladder activity is identified at 75 minutes post radiopharmaceutical administration. 3. Small intestinal tract is observed at 15 minutes following tracer injection. 4. Washout of the radiopharmaceutical by the hepatic parenchyma appears qualitatively normal. Cholecystokinin (0.02 ug/kg) was administered intravenously over a 30-minute period. The post CCK gallbladder ejection fraction calculated at 20 minutes following Cholecystokinin administration was noted to be 36.0 % (normal greater than 35%). During 30 minutes of post CCK imaging, there is scintigraphic evidence of refilling of the gallbladder and visualized duodenal-gastric reflux. NM/Hepatobilliary Img w/Pharm Int IMPRESSION: 1. A gallbladder ejection fraction calculated to be greater than 35% following the administration of Cholecystokinin makes the probability of functional hepatobiliary disease (gallbladder dyskinesia) and/or organic hepatobiliary disease (chronic acalculous cholecystitis and/or cystic duct syndrome) to be low. (Carlos Alberto Bianchi et al, Journal of Nuclear Medicine 32:1695, 1990). 2. The presentation of a normal gallbladder ejection fraction with refilling of the gallbladder following CCK administration, may represent the presence of Sphincter of Oddi dysfunction. Correlation with Sphincter of Oddi manometry may be of benefit. (Bobbi and Bobbi, J Nucl Med 38:1824, 1997). 3. Post cholecystokinin duodenal-gastric reflux is noted as described above. Electronically Signed: David Claudio DO at 11:08 EDT Tel , Service support ,
== END ==
PROVIDERS: Family Provider Family Medicine; PCP Family Medicine; Referring Provider Family Medicine; Visit Provider Family Medicine
DX: R10.11 Right upper quadrant pain (principal); R11.0 Nausea
CPT/HCPCS: 78227; A9537; J2805

== ENCOUNTER 2019-03-19 05:33 | Day surgery (SDC) | payer OTHER, SELFPAY ==
--- NOTE | 2019-02-16 01:43 | HP_ITS ---
Intake Vital Signs 02/16/19 Body Mass Index (BMI) 50.0 02/16/19 Height 5 ft 5 in 02/16/19 Weight: 246 lb 02/16/19 Body Mass Index (BMI) 40.9 02/16/19 Blood Pressure 135/84 H 02/16/19 Blood Pressure Location Rt brachial 02/16/19 Blood Pressure Position Sitting 02/16/19 Respiratory Rate 18 02/16/19 Pulse Rate 78 02/16/19 Pulse Source Monitor 02/16/19 Temperature 98.7 F 02/16/19 Temperature Source Oral 02/16/19 Pulse Ox 97 02/16/19 Oxygen Delivery Method room air Intake Visit Reasons: RUQ pain Parts Product Analyst Required: No Is patient in pain?: No Allergies No Known Allergies Allergy (Verified 02/16/19 13:11) Medications L.acidophilus,gasseri,rhamnosus-B.bifidum,long 3 billion cell capsule cap PO DAILY cap 02/16/19 [History Confirmed 02/16/19] multivitamin capsule 1 cap PO DAILY 02/16/19 [History] [facility] Medical History (Updated 02/16/19 @ 13:37 by Josh Vega MD) Diarrhea (Acute) Epigastric abdominal pain (Acute) Abdominal pain (Acute) Acid reflux (Acute) Anxiety (Acute) History of back problems (Acute) Nausea (Acute) Obesity (Acute) Surgical History (Updated 02/16/19 @ 13:09 by Sandra Warner) History of (Acute) History of tonsillectomy and adenoidectomy (Acute) Social History (Updated 02/16/19 @ 13:43 by Josh Vega MD) adopted: Yes Smoking Status: Former smoker alcohol intake: never substance use type: does not use HPI HPI HPI: CAMDEN ANTONIO, is a 29 F who presents to the office today for HPI HPI Surgical H&P: Yes HPI: CAMDEN ANTONIO, is a 29 F who presents to the office today for surgical consultation regarding abdominal pain and diarrhea. The patient's father is Dr. Prabhu Pettit. On May 11, 2018 the patient via delivered her child. 8 weeks post delivery she was placed on Depo-Provera shots as a means of control. She had had this medication remotely from age 16 through 21. On this occasion however she developed epigastric pain. Nausea. Intermittent episodes of severe diarrhea and loss of appetite. No bright red blood per rectum or melena. Those episodes would last for a week or so then subside and seemingly resolve only to return. She has had stool for analysis which was unremarkable for an acute pathogen. On January 12, 2019 at the [facility] she had a right upper quad ultrasound which was not normal. On January 18, 2019 she had a hepatobiliary scan. Gallbladder ejection fraction 36% which is 1% above abnormal and so the exam was felt to be normal. There is evidence of duodenal gastric reflux noted. The patient does not have a family history because she is adopted. CBC and BMP otherwise normal. The patient is referred by her primary care physician Dr. Gayle Beard and a written copy of my surgical consult will return to her ROS General General: Yes weight change and fatigue; no appetite, colon cancer, breast cancer or weakness HEENT HEENT: No difficulty swallowing, eye injury, eye surgery, swollen glands or hoarseness Endo Endocrine: No thyroid disease, diabetes mellitus, thyroid cancer, Hair loss, heat intolerance or cold intolerance Skin Skin: No rash or changing moles Breast Breast: No left breast lump, right breast lump, nipple discharge, breast pain, abnormal mammogram, abnormal US or breast enlargement Musc Musculoskeletal: Yes back problems; no arthritis, rheumatoid arthritis, gout or joint pain Cardio Cardiovascular: No murmur, pacemaker, heart disease, atrial fibrillation, high blood pressure, heart attack, heart stent, palpitations, shortness of breat with exertion or chest pain Psych Psychiatric: Yes anxiety; no depression or hearing voices Resp Respiratory: No shortness of breath, No sleep apnea, No cough, No COPD, No asthma, No emphysema, No wheezing Gastro Gastrointestinal: Yes abdominal pain, Yes nausea or vomiting, Yes diarrhea, Yes constipation, No blood in stool, Yes acid reflux, No hemorrhoids, No ulcers, No gallbladder problem, No black,tarry stools Sea Hematologic: No blood thinners, No blood disorders, No bleeding, No anemia, No blood clots Neuro Neurologic: No system reviewed and no additional complaints, except as docu, No as per HPI, No abnormal walking, No abnormal hearing, No abnormal movements, No abnormal speech, No behavioral changes, No burning sensations, No confusion, No seizure-like activity, No unsteadiness, No dizziness, No localized weakness, No frequent falls, No headache(s), No lack of coordination, No loss of vision, No memory loss, No numbness, No other visual disturbances, No radiating pain, No restless legs, No sensory deficit, No fainting, No tingling, No tremor(s), No weakness, No other Exam Const General: cooperative, comfortable, no acute distress Nutritional Appearance: obese Orientation: alert, awake Eyes General: appearance normal, both eyes and all related structures Chest Breast Palpation: No nipple discharge Resp Effort & Inspection: normal respiratory effort Auscultation: clear to auscultation bilaterally Cardio Rate: regular rate Rhythm: regular rhythm Heart Sounds: no murmurs GI Palpation: soft, no hepatosplenomegaly Auscultation: normal bowel sounds Skin Lesions: no lesions Neuro Cognition: normal cognition Extrem General: no calf tenderness bilaterally Psych Affect: normal affect Assessment & Plan Problems 1. Epigastric abdominal pain R10.13 2. Diarrhea, unspecified type R19.7 Plan Epigastric abdominal pain not specifically food related. Intermittent episodes of severe diarrhea. Symptoms not improved with Tums antacids. Diarrhea is improved with Pepto-Bismol. Family history is not obtainable. Borderline abnormal hepatobiliary scan with an ejection fraction of 36% Etiology of the patient's complexity of symptoms unclear. Certainly this could be bile reflux gastritis. She could have microcytic colitis. Additional possibility would be biliary dyskinesia. Finally her symptoms could resolve with a diagnosis of irritable bowel syndrome. In great detail with the patient's present I have discussed tentative diagnoses techniques benefits risks complications alternatives. I have offered her a combined esophagogastroduodenoscopy and colonoscopy with possible biopsies. Will be looking for H. pylori and eosinophilic esophagitis and microcytic colitis. If that was unremarkable and I have discussed lap scopic cholecystectomy with selective cholangiography with a tentative diagnosis at that point of biliary dyskinesia. She is requesting that a tubal ligation per Dr. Filippo Rangel be performed at that time. I think we could facilitate that. If none of those alternatives improve her situation then my tentative diagnosis would be irritable bowel syndrome and I would refer back to primary care. The patient's had an opting to ask and have questions answered she is comfortable would like to schedule and proceed as noted. I very much appreciate the kind opportunity of assisting with her surgical care. CC: Dr. Gayle Grayl, M.D., F.A.C.S. Coding Level of Care Code 60155 Diagnoses Epigastric abdominal pain R10.13 Diarrhea, unspecified type R19.7 ??Diarrhea type: unspecified type 02/16/19 1343 <Electronically signed by Josh cat MD> Date _ Josh Vega MD
[2019-02-16 13:13] VITALS: BMI 50.0
[2019-03-19] VITALS (7 sets, daily range): BP systolic 93–134; BP diastolic 58–91; PULSE 55–92; RESP 16–18; TEMP 36.5–36.7; O2SAT 94–100; BMI 39.9
--- NOTE | 2019-03-19 06:11 | SUR.PREOP ---
Pt refusing urine , unable to void. Pt states she is menstrating. Pt and pt's verbalize understanding reasoning for test.
--- NOTE | 2019-03-19 06:28 | HP.PCM_ITS ---
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 Required: No Is patient in pain?: No Allergies No Known Allergies Allergy (Verified 02/16/19 13:11) Medications L.acidophilus,gasseri,rhamnosus-B.bifidum,long 3 billion cell capsule cap PO DAILY cap 02/16/19 [History Confirmed 02/16/19] multivitamin capsule 1 cap PO DAILY 02/16/19 [History] [facility] Medical History (Updated 02/16/19 @ 13:37 by Josh Vega MD) Diarrhea (Acute) Epigastric abdominal pain (Acute) Abdominal pain (Acute) Acid reflux (Acute) Anxiety (Acute) History of back problems (Acute) Nausea (Acute) Obesity (Acute) Surgical History (Updated 02/16/19 @ 13:09 by Sandra Warner) History of (Acute) History of tonsillectomy and adenoidectomy (Acute) Social History (Updated 02/16/19 @ 13:43 by Josh Vega MD) adopted: Yes Smoking Status: Former smoker alcohol intake: never substance use type: does not use HPI HPI HPI: CAMDEN ANTONIO, is a 29 F who presents to the office today for HPI HPI Surgical H&P: Yes HPI: CAMDEN ANTONIO, is a 29 F who presents to the office today for surgical consultation regarding abdominal pain and diarrhea. The patient's father is Dr. Prabhu Pettit. On May 11, 2018 the patient via delivered her child. 8 weeks post delivery she was placed on Depo-Provera shots as a means of control. She had had this medication remotely from age 16 through 21. On this occasion however she developed epigastric pain. Nausea. Intermittent episodes of severe diarrhea and loss of appetite. No bright red blood per rectum or melena. Those episodes would last for a week or so then subside and seemingly resolve only to return. She has had stool for analysis which was unremarkable for an acute pathogen. On January 12, 2019 at the [facility] she had a right upper quad ultrasound which was not normal. On January 18, 2019 she had a hepatobiliary scan. Gallbladder ejection fraction 36% which is 1% above abnormal and so the exam was felt to be normal. There is evidence of duodenal gastric reflux noted. The patient does not have a family history because she is adopted. CBC and BMP otherwise normal. The patient is referred by her primary care physician Dr. Gayle Beard and a written copy of my surgical consult will return to her ROS General General: Yes weight change and fatigue; no appetite, colon cancer, breast cancer or weakness HEENT HEENT: No difficulty swallowing, eye injury, eye surgery, swollen glands or hoarseness Endo Endocrine: No thyroid disease, diabetes mellitus, thyroid cancer, Hair loss, heat intolerance or cold intolerance Skin Skin: No rash or changing moles Breast Breast: No left breast lump, right breast lump, nipple discharge, breast pain, abnormal mammogram, abnormal US or breast enlargement Musc Musculoskeletal: Yes back problems; no arthritis, rheumatoid arthritis, gout or joint pain Cardio Cardiovascular: No murmur, pacemaker, heart disease, atrial fibrillation, high blood pressure, heart attack, heart stent, palpitations, shortness of breat with exertion or chest pain Psych Psychiatric: Yes anxiety; no depression or hearing voices Resp Respiratory: No shortness of breath, No sleep apnea, No cough, No COPD, No asthma, No emphysema, No wheezing Gastro Gastrointestinal: Yes abdominal pain, Yes nausea or vomiting, Yes diarrhea, Yes constipation, No blood in stool, Yes acid reflux, No hemorrhoids, No ulcers, No gallbladder problem, No black,tarry stools Sea Hematologic: No blood thinners, No blood disorders, No bleeding, No anemia, No blood clots Neuro Neurologic: No system reviewed and no additional complaints, except as docu, No as per HPI, No abnormal walking, No abnormal hearing, No abnormal movements, No abnormal speech, No behavioral changes, No burning sensations, No confusion, No seizure-like activity, No unsteadiness, No dizziness, No localized weakness, No frequent falls, No headache(s), No lack of coordination, No loss of vision, No memory loss, No numbness, No other visual disturbances, No radiating pain, No restless legs, No sensory deficit, No fainting, No tingling, No tremor(s), No weakness, No other Exam Const General: cooperative, comfortable, no acute distress Nutritional Appearance: obese Orientation: alert, awake Eyes General: appearance normal, both eyes and all related structures Chest Breast Palpation: No nipple discharge Resp Effort & Inspection: normal respiratory effort Auscultation: clear to auscultation bilaterally Cardio Rate: regular rate Rhythm: regular rhythm Heart Sounds: no murmurs GI Palpation: soft, no hepatosplenomegaly Auscultation: normal bowel sounds Skin Lesions: no lesions Neuro Cognition: normal cognition Extrem General: no calf tenderness bilaterally Psych Affect: normal affect Assessment & Plan Problems 1. Epigastric abdominal pain R10.13 2. Diarrhea, unspecified type R19.7 Plan Epigastric abdominal pain not specifically food related. Intermittent episodes of severe diarrhea. Symptoms not improved with Tums antacids. Diarrhea is improved with Pepto-Bismol. Family history is not obtainable. Borderline abnormal hepatobiliary scan with an ejection fraction of 36% Etiology of the patient's complexity of symptoms unclear. Certainly this could be bile reflux gastritis. She could have microcytic colitis. Additional possibility would be biliary dyskinesia. Finally her symptoms could resolve with a diagnosis of irritable bowel syndrome. In great detail with the patient's present I have discussed tentative diagnoses techniques benefits risks complications alternatives. I have offered her a combined esophagogastroduodenoscopy and colonoscopy with possible biopsies. Will be looking for H. pylori and eosinophilic esophagitis and microcytic colitis. If that was unremarkable and I have discussed lap scopic cholecystectomy with selective cholangiography with a tentative diagnosis at that point of biliary dyskinesia. She is requesting that a tubal ligation per Dr. Filippo Rangel be performed at that time. I think we could facilitate that. If none of those alternatives improve her situation then my tentative diagnosis would be irritable bowel syndrome and I would refer back to primary care. The patient's had an opting to ask and have questions answered she is comfortable would like to schedule and proceed as noted. I very much appreciate the kind opportunity of assisting with her surgical care. CC: Dr. Gayle Vega M.D., F.A.C.S. Coding Level of Care Code 17787 Diagnoses Epigastric abdominal pain R10.13 Diarrhea, unspecified type R19.7 ??Diarrhea type: unspecified type Plan to proceed with EGD and cscope. May need future lap GB History and physical reviewed
--- NOTE | 2019-03-19 06:30 | IMM_PTH ---
PATIENT: CAMDEN ANTONIO LOC: [facility] U#:[id number] AGE/SX: 29/F ROOM: RE03/19/[address]: Dr. Josh Vega MD : 1990 BED: DIS: 03/19/2019 SPEC #: [id number] RECD: 03/19/19 14:05 STATUS: HILDA REAntwan #: [id number] GABRIELE: 03/19/19 06:[address]: Josh Vega DEPT: IMMUNOHISTOCHEMISTRY RECD BY: Liane Diggs ENTERED: 03/19/19 14:06 SP TYPE: IMMUNO OTHR DR: Dr. Gayle Beard MD Tissues: B - Stomach, NOS Procedures: H Pylori (initial) PHYSICIAN & INSTITUTION [place] [id number] SPECIMEN INFORMATION: Tissue Source: B - Antrum biopsy Clinical Info: Epigastric pain, diarrhea Specimen Number: [id number] CPT code: 47540 METHODOLOGY: Deparaffinized sections of prefer/formalin-fixed tissue or PAP/DQ stained slides are incubated with monoclonal/polyclonal antibodies/oligonucleotide probes. Localization is made via biotin free immunoperoxidase method. Appropriate controls are performed and reacted as expected. Results on target cell population are indicated in the following table: RESULTS: ANTIBODY / CLONE RESULT Block B H Pylori (polyclonal) negative These tests were developed and their performance characteristics determined by [facility]. They may not have been cleared or approved by the U.S. Food and Drug Administration. The FDA has determined that such clearance or approval is not necessary. INTERPRETATION: B. Antrum biopsy: Negative for Helicobacter pylori organisms. SJ:cj 03/22/19
--- NOTE | 2019-03-19 06:30 | EGD_PTH ---
PATIENT: CAMDEN ANTONIO LOC: [facility] U#:[id number] AGE/SX: 29/F ROOM: RE03/19/[address]: Dr. Josh Vega MD : [id number] BED: DIS: 03/19/2019 SPEC #: [id number] RECD: 03/19/19 11:02 STATUS: HILDA LEIF #: [id number] GABRIELE: 03/19/19 06:[address]: Josh Vega DEPT: SURGICAL PATHOLOGY RECD BY: Natan Stanley ENTERED: 03/19/19 12:19 SP TYPE: EGD BIOPSY OTHR DR: Dr. Gayle Beard MD Tissues: A - Duodenum, NOS B - Gastric mucous membrane C - Esophageal mucous membrane D - Esophageal mucous membrane E - COLON BIOPSY Procedures: Special Stain Group II Surgery Specimen Level IV Alcian Blue/PAS (control) HEADER OPERATION: Colonoscopy, EGD ([facility] [place]) PRE-OP DIAGNOSIS: Epigastric pain, diarrhea TISSUE SUBMITTED: A - Duodenum biopsy, B - Antrum biopsy for H. pylori and path, C - Distal esophagus biopsy, D - Mid esophagus biopsy, E - Random colon biopsies MICROSCOPIC DIAGNOSIS A. Duodenum, biopsy: A fragment of duodenal mucosa with mild Lisa gland hyperplasia. B. Antrum, biopsy: Mild gastritis. See microscopic description and comment. C. Distal esophagus, biopsy: Fragments of gastroesophageal mucosa with mild chronic inflammation. Intestinal metaplasia (goblet cell metaplasia) is not identified. See comment. D. Mid esophagus, biopsy: Fragments of squamous epithelium, no pathologic diagnosis. E. Colon, random biopsy: Fragments of colonic mucosa, no pathologic diagnosis. SJ:cj 03/22/19 COMMENT B. The results of immunohistochemistry for Helicobacter pylori will be reported separately ([id number]). C. Alcian blue/PAS stain with matched control is used in the evaluation of the specimen. MICROSCOPIC DESCRIPTION Slides are reviewed. B. The specimen shows fragments of gastric mucosa with chronic inflammatory cell infiltrates in the lamina propria consisting of lymphocytes and plasma cells, consistent with mild chronic gastritis. GROSS DESCRIPTION A - Received in fixative is one container labeled with the patient's name and designated duodenum biopsy. The specimen consists of one irregular fragment of light craig soft tissue that measures 0.5 x 0.5 x 0.1 cm. The specimen is totally submitted in one cassette. B - Received in fixative is one container labeled with the patient's name and designated antrum biopsy. The specimen consists of one irregular fragment of light craig soft tissue that measures 0.5 x 0.3 x 0.1 cm. The specimen is totally submitted in one cassette. C - Received in fixative is one container labeled with the patient's name and designated distal esophagus biopsy. The specimen consists of multiple irregular fragments of light craig soft tissue that in aggregate measure 0.5 x 0.4 x 0.1 cm. The specimen is totally submitted in one cassette. D - Received in fixative is one container labeled with the patient's name and designated mid esophagus biopsy. The specimen consists of multiple irregular fragments of light craig soft tissue that in aggregate measure 1.5 x 0.2 x 0.1 cm. The specimen is totally submitted in one cassette. E - Received in fixative is one container labeled with the patient's name and designated random colon biopsy. The specimen consists of multiple irregular fragments of light craig soft tissue that in aggregate measure 1.5 x 0.5 x 0.1 cm. The specimen is totally submitted in one cassette. / SJ:cj 03/19/19 TC:3 CPT: 93364 x5, 27892
--- NOTE | 2019-03-19 07:06 | OP.ENDO_ITS ---
03/19/2019 Gayle Beard [place] [id number] [address] Re : Upper GI endoscopy procedure for Rox Nuñez Dear Dr. Beard This procedure was performed on Tuesday, March 19, 2019. My impressions and recommendations are as follows: Impressions : - Z-line regular, 40 cm from the incisors. Biopsied at distal and mid esophagus - 1 cm hiatal hernia. - Erythematous mucosa in the antrum. Biopsied. - Normal examined duodenum. Biopsied. Recommendations : - Discharge patient to home. - Resume previous diet. - Continue present medications. - Return to my office in 1 week. My findings are described in the full procedure note, which is enclosed. If I can be of further assistance, please feel free to contact me at Doctor phone number(s): Work: . Sincerely, Josh Vega MD 03/19/2019 7:05:52 AM This report has been signed electronically.
--- NOTE | 2019-03-19 07:07 | OP.ENDO_ITS ---
03/19/2019 Gayle Beard [place] [id number] [address] Re : Colonoscopy procedure for Rox Nuñez Dear Dr. Beard This procedure was performed on Tuesday, March 19, 2019. My impressions and recommendations are as follows: Impressions : - The entire examined colon is normal. Biopsied. Recommendations : - Discharge patient to home. - Resume previous diet. - Continue present medications. - Repeat colonoscopy at age 48. - Return to my office in 1 week. My findings are described in the full procedure note, which is enclosed. If I can be of further assistance, please feel free to contact me at Doctor phone number(s): Work: . Sincerely, Josh Vega MD 03/19/2019 7:07:50 AM This report has been signed electronically.
== END 2019-03-19 07:56 | disposition home or self-care (01) ==
LOC: EN 05:34 → AC 05:35
PROVIDERS: Family Provider Family Medicine; PCP Family Medicine; Referring Provider Family Medicine; Visit Provider Surgery
PROC: 0DJD8ZZ Inspection of Lower Intestinal Tract, Via Natural or Artificial Opening Endoscopic (ICD-10-PCS; CPT 45378; principal; 2019-03-19 06:25)
DX: K29.70 Gastritis, unspecified, without bleeding (principal); K44.9 Diaphragmatic hernia without obstruction or gangrene; K21.9 Gastro-esophageal reflux disease without esophagitis; R10.13 Epigastric pain; R19.7 Diarrhea, unspecified; E66.9 Obesity, unspecified; Z87.891 Personal history of nicotine dependence
CPT/HCPCS: 43239; 45380; 88305; 88313; 88342; J7120; J1610; J2405

== ENCOUNTER → 2019-04-01 13:43 | Outpatient (CLI) | payer OTHER, SELFPAY ==
[2019-03-26 14:41] VITALS: BMI 39.9
[2019-04-07 12:25] LABS: HPV Reflexed? NOT INDICATED
== END ==
PROVIDERS: Visit Provider Obstetrics & Gynecology
DX: Z12.4 Encounter for screening for malignant neoplasm of cervix (principal)
CPT/HCPCS: 87624; 88175; G0145

== ENCOUNTER → 2020-08-17 10:19 | Outpatient (CLI) | payer OTHER, SELFPAY ==
[2019-03-26 14:41] VITALS: BMI 39.9
== END ==
PROVIDERS: PCP Family Medicine; Referring Provider Family Medicine; Visit Provider Family Medicine
DX: Z03.818 Encounter for observation for suspected exposure to other biological agents ruled out (principal); R43.2 Parageusia
CPT/HCPCS: 87635; C9803; U0005; U0003

== ENCOUNTER → 2021-05-06 15:21 | Outpatient (CLI) | payer OTHER, SELFPAY | PROVIDERS: PCP Family Medicine; Referring Provider Physician Assistant; Visit Provider Physician Assistant | DX: Z20.822 Contact with and (suspected) exposure to COVID-19 (principal) | CPT/HCPCS: 87635; U0005; U0003 ==

== ENCOUNTER → 2021-07-16 11:47 | Outpatient (CLI) | payer OTHER, SELFPAY ==
[2021-07-16 13:44] LABS: T3 Total - Triiodothyronine 0.97 ng/mL (0.6-1.81)
[2021-07-16 13:46] LABS: Progesterone Level < 0.21 ng/mL (See Comment)
[2021-07-16 13:49] LABS: Estradiol 48.6 pg/mL; Follicle Stimulating Hormone 6.5 mIU/mL; Prolactin 4.4 ng/mL; T4 Free Direct 1.09 ng/dL (0.76-1.46); Thyroid Stim Hormone (TSH) 1.37 uIU/mL (0.358-3.74)
[2021-07-18 04:07] LABS: DHEA Sulfate 67.1 ug/dL (84.8-378.0)
[2021-07-18 09:42] LABS: Sex Hormone-binding Globulin 86.6 nmol/L (24.6-122.0)
[2021-07-20 14:13] LABS: 17-Hydroxyprogesterone 43 ng/dL (.)
== END ==
PROVIDERS: PCP Family Medicine; Visit Provider Obstetrics & Gynecology
DX: E28.9 Ovarian dysfunction, unspecified (principal)
CPT/HCPCS: 36415; 82533; 82627; 82670; 83001; 83498; 84144; 84146; 84270; 84403; 84439; 84443; 84480; 82626

== ENCOUNTER 2021-08-06 11:15 | Outpatient (CLI) | payer OTHER, SELFPAY | END 2021-08-06 23:59 | disposition short-term general hospital (02) | LOC: LABSPEC 11:16 | PROVIDERS: PCP Family Medicine; Referring Provider Physician Assistant Surgical; Visit Provider Physician Assistant Surgical | DX: Z11.52 Encounter for screening for COVID-19 (principal) | CPT/HCPCS: 87635; U0003; U0005 ==

== ENCOUNTER 2021-08-31 11:54 | Outpatient (CLI) | payer OTHER, SELFPAY ==
[2021-09-04 20:55] LABS: Estrogen, Total, Serum 313 pg/mL (.)
== END 2021-08-31 23:59 | disposition short-term general hospital (02) ==
LOC: WOBLAB 11:55
PROVIDERS: PCP Family Medicine; Visit Provider Obstetrics & Gynecology
DX: E28.9 Ovarian dysfunction, unspecified (principal)
CPT/HCPCS: 36415; 82672; 84144

== ENCOUNTER → 2022-07-09 | Outpatient (CLI) | payer OTHER, SELFPAY ==
[2022-07-09 17:44] LABS: Absolute Lymphocyte Count 1.43 X10^3/uL (0.83-4.51); Absolute Neutrophil Count 4.6 X10^3/uL (2.0-7.7); Basophil# 0.05 X10^3/uL; Basophil% 0.7 % (0-1); Eosinophil# 0.11 X10^3/uL; Eosinophils% 1.6 % (0-5); Hemoglobin 12.9 g/dL (12.0-15.0); Lymphocyte # 1.43 X10^3/ul (0.83-4.51); Lymphocyte % 21.3 % (19-41); Mean Corp Hgb Conc 31.5 g/dL (32-36); Mean Corpuscular Hgb 26.9 pg (27.0-32.0); Mean Corpuscular Volume 85.6 fL (81-99); Monocyte# 0.52 X10^3/uL; Monocyte% 7.7 % (0-10); NRBC Flagged by Analyzer 0 % (0-5); Neutrophil # 4.59 X10^3/uL (2.7-7.7); Neutrophil % 68.4 % (47-70); Platelet Count 267 K/mm3 (150-450); RBC Distribution Width CV 13.7 % (11.6-14.6); RBC Distribution Width SD 42.8 fl (35.1-43.9); Red Blood Count 4.79 M/mm3 (4.2-5.4); White Blood Count 6.7 K/mm3 (4.4-11.0)
[2022-07-09 18:16] LABS: T4 Free Direct 0.99 ng/dL (0.76-1.46); Thyroid Stim Hormone (TSH) 2.85 uIU/mL (0.358-3.74)
== END | disposition home or self-care (01) ==
LOC: BFHLAB 15:58
PROVIDERS: PCP Family Medicine; Visit Provider Family Medicine
DX: E03.9 Hypothyroidism, unspecified (principal); R53.83 Other fatigue
CPT/HCPCS: 36415; 84439; 84443; 85025

== ENCOUNTER → 2023-03-26 | Outpatient (CLI) | payer OTHER, SELFPAY ==
--- NOTE | 2023-03-26 14:33 | US_ITS ---
INDICATION: ENLARGED LYMPH NODE EXAMINATION: Ultrasound US Head/Neck Soft Tissue TECHNIQUE: Byers scale and color doppler imaging was performed of the left posterolateral neck corresponding to the area of clinical concern. COMPARISON: None. FINDINGS: No solid or cystic masses seen. No abnormal fluid collection. There is a prominent lymph node in the area of clinical concern measuring 5 mm in short axis diameter which is reniform in shape with a central fatty hilum. US/Head/Neck Soft Tissue IMPRESSION: No sonographic abnormality in the left posterolateral neck corresponding to area of clinical concern other than a benign-appearing lymph node. Electronically Signed: Adolfo Lopez DO at 8:03 EDT ,
[2023-03-26 15:10] LABS: Absolute Lymphocyte Count 1.59 X10^3/uL (0.83-4.51); Absolute Neutrophil Count 4.7 X10^3/uL (2.0-7.7); Basophil# 0.05 X10^3/uL; Basophil% 0.7 % (0-1); Eosinophils% 1.4 % (0-5); Hematocrit 38.5 % (37-47); Hemoglobin 11.9 g/dL (12.0-15.0); Lymphocyte # 1.59 X10^3/ul (0.83-4.51); Lymphocyte % 22.5 % (19-41); Mean Corp Hgb Conc 30.9 g/dL (32-36); Mean Corpuscular Hgb 25.9 pg (27.0-32.0); Mean Corpuscular Volume 83.9 fL (81-99); Mean Platelet Vol. 9.3 fl (6.2-12.0); Monocyte# 0.57 X10^3/uL; Monocyte% 8.1 % (0-10); NRBC Flagged by Analyzer 0 % (0-5); Neutrophil # 4.74 X10^3/uL (2.7-7.7); Neutrophil % 66.9 % (47-70); Platelet Count 272 K/mm3 (150-450); RBC Distribution Width CV 13.8 % (11.6-14.6); RBC Distribution Width SD 41.9 fl (35.1-43.9); Red Blood Count 4.59 M/mm3 (4.2-5.4); White Blood Count 7.1 K/mm3 (4.4-11.0)
== END | disposition home or self-care (01) ==
PROVIDERS: PCP Family Medicine; Referring Provider Family Medicine; Visit Provider Family Medicine
DX: R53.83 Other fatigue (principal); R59.0 Localized enlarged lymph nodes
CPT/HCPCS: 36415; 76536; 85025

== ENCOUNTER → 2023-03-27 | Outpatient (CLI) | payer OTHER, SELFPAY ==
[2023-04-02 12:09] LABS: HPV APTIMA, High Risk Negative (Negative)
== END | disposition home or self-care (01) ==
LOC: US 03-28 08:38 → LABSPEC 03-28 09:56
PROVIDERS: PCP Family Medicine; Referring Provider Registered Nurse; Visit Provider Registered Nurse
DX: Z12.4 Encounter for screening for malignant neoplasm of cervix (principal)
CPT/HCPCS: 87624; 88175; G0145

== ENCOUNTER → 2023-04-02 | Outpatient (CLI) | payer OTHER, SELFPAY ==
--- NOTE | 2023-04-02 11:24 | US_ITS ---
INDICATION: heavy menstrual bleeding EXAMINATION: Ultrasound US Transvaginal Non-OB TECHNIQUE: Transvaginal (for optimal evaluation of the adnexa) pelvic ultrasound was performed. Grayscale, spectral waveform, and color flow Doppler evaluation of the adnexa. COMPARISON: None. FINDINGS: UTERUS: Anteverted. The uterus measures 9.9 x 5.9 x 4.4 cm. There is no uterine mass. Borderline heterogeneity throughout the uterine myometrium, cannot exclude adenomyosis. The endometrial stripe measures 11 mm in AP diameter which is within normal limits. RIGHT OVARY: 3.4 x 2.6 x 1.9 cm. Non-enlarged, normal echogenicity. There is normal arterial inflow and venous outflow present in the right ovary. Under clip structure consistent with follicular cysts, largest averaging 9.4 mm in maximum dimension. LEFT OVARY: 0.9 x 2.4 x 2.2 cm. Non-enlarged, normal echogenicity. There is normal arterial inflow and venous outflow present in the left ovary. Nonspecific anechoic structures consistent with follicular cysts, largest measuring 1.5 cm. FREE FLUID: Mild free fluid. US/Transvaginal Non- IMPRESSION: Mild heterogeneity throughout the uterus, cannot entirely exclude adenomyosis. Remainder of the pelvis ultrasound otherwise unremarkable. Electronically Signed: Shanae Trevizo MD at 17:16 EDT ,
== END | disposition home or self-care (01) ==
LOC: US 11:23
PROVIDERS: PCP Family Medicine; Referring Provider Registered Nurse; Visit Provider Registered Nurse
DX: N92.6 Irregular menstruation, unspecified (principal)
CPT/HCPCS: 76830

== ENCOUNTER → 2023-07-22 | Outpatient (CLI) | payer OTHER, SELFPAY ==
[2023-07-22 14:32] LABS: T4 Free Direct 1.05 ng/dL (0.76-1.46); Thyroid Stim Hormone (TSH) 1.68 uIU/mL (0.358-3.74); Vitamin D,25 Hydroxy 32.7 ng/mL
[2023-08-01 13:07] LABS: Testosterone Free <0.2 pg/mL (0.0-4.2)
== END | disposition home or self-care (01) ==
PROVIDERS: PCP Family Medicine; Referring Provider Registered Nurse; Visit Provider Registered Nurse
DX: N92.6 Irregular menstruation, unspecified (principal)
CPT/HCPCS: 36415; 82306; 82627; 84402; 84439; 84443; 82626

== ENCOUNTER → 2024-08-12 | Outpatient (CLI) | payer OTHER, SELFPAY | END | disposition home or self-care (01) | LOC: LABSPEC 16:35 | PROVIDERS: PCP Family Medicine; Referring Provider Nurse Practitioner Family; Visit Provider Nurse Practitioner Family | DX: N89.8 Other specified noninflammatory disorders of vagina (principal) | CPT/HCPCS: 87070; 87205 ==

== ENCOUNTER → 2024-09-29 | Outpatient (CLI) | payer OTHER, SELFPAY ==
[2024-09-29 17:08] LABS: Absolute Lymphocyte Count 1.53 X10^3/uL (0.83-4.51); Absolute Neutrophil Count 3.5 X10^3/uL (2.0-7.7); Basophil# 0.03 X10^3/uL; Basophil% 0.5 % (0-1); Eosinophil# 0.09 X10^3/uL; Eosinophils% 1.6 % (0-5); Hematocrit 38.9 % (37-47); Hemoglobin 12.1 g/dL (12.0-15.0); Lymphocyte # 1.53 X10^3/ul (0.83-4.51); Lymphocyte % 27.5 % (19-41); Mean Corp Hgb Conc 31.1 g/dL (32-36); Mean Corpuscular Hgb 25.7 pg (27.0-32.0); Mean Corpuscular Volume 82.8 fL (81-99); Mean Platelet Vol. 9.9 fl (6.2-12.0); Monocyte# 0.43 X10^3/uL; Monocyte% 7.7 % (0-10); NRBC Flagged by Analyzer 0 % (0-5); Neutrophil # 3.45 X10^3/uL (2.7-7.7); Neutrophil % 62.2 % (47-70); Platelet Count 260 K/mm3 (150-450); RBC Distribution Width CV 14.6 % (11.6-14.6); RBC Distribution Width SD 44.1 fl (35.1-43.9); White Blood Count 5.6 K/mm3 (4.4-11.0)
[2024-09-29 17:37] LABS: Vitamin D,25 Hydroxy 25.8 ng/mL (30-100)
== END | disposition home or self-care (01) ==
LOC: BWCLAB 14:28
PROVIDERS: PCP Family Medicine; Referring Provider Nurse Practitioner Family; Visit Provider Nurse Practitioner Family
DX: E66.09 Other obesity due to excess calories (principal)
CPT/HCPCS: 36415; 82306; 84439; 85025

== ENCOUNTER → 2025-06-14 | Outpatient (CLI) | payer OTHER, SELFPAY ==
[2025-06-14 13:15] LABS: Hematocrit 40.4 % (37-47); Hemoglobin 12.7 g/dL (12.0-15.0); Immature Granulocytes Count 0.040 X10^3/uL (0.0-0.0); Mean Corp Hgb Conc 31.4 g/dL (32-36); Mean Corpuscular Volume 82.4 fL (81-99); Mean Platelet Vol. 9.2 fl (6.2-12.0); NRBC Flagged by Analyzer 0 % (0-5); Platelet Count 276 K/mm3 (150-450); RBC Distribution Width CV 13.6 % (11.6-14.6); RBC Distribution Width SD 40.8 fl (35.1-43.9); Red Blood Count 4.90 M/mm3 (4.2-5.4); White Blood Count 7.8 K/mm3 (4.4-11.0)
[2025-06-14 14:26] LABS: AST(SGOT) 18 U/L (<=31); Alanine Aminotransfer ALT/SGPT 17 U/L (<=34); Albumin, Serum 4.4 g/dL (3.5-5.0); Alkaline Phosphatase 64 U/L (35-104); Anion Gap 10 (5-15); BUN 15 mg/dL (4-19); BUN/Creat Ratio 22.3 RATIO (10-20); Calcium,Total 9.4 mg/dL (7.6-11.0); Carbon Dioxide 24.7 mmol/L (21.0-32.0); Chloride 105 mmol/L (98-108); Globulin 3.0 g/dL (2.2-4.2); Glucose 93 mg/dL (70-99); Potassium 3.9 mmol/L (3.3-5.1)
[2025-06-17 12:08] LABS: Vitamin D 1,25-Dihydroxy 44.6 pg/mL (24.8-81.5)
== END | disposition home or self-care (01) ==
LOC: LAB 12:51
PROVIDERS: Nurse Practitioner Family; PCP Family Medicine; Referring Provider Family Medicine; Visit Provider Family Medicine
DX: R60.0 Localized edema (principal)
CPT/HCPCS: 36415; 80053; 82652; 83036; 85025